=== PATIENT | female | born 1990 | race Caucasian/White ===

== ENCOUNTER 2016-12-03 14:29 | Emergency (ER) | payer OTHER ==
[2016-12-03 14:34] VITALS: BP 141/97; PULSE 100; RESP 18; TEMP 97.8
[2016-12-03] MEDS ORDERED: IBUPROFEN 600 MG TAB PO STA (14:44)
[2016-12-03] MEDS ORDERED: PENICILLIN V POTASSIUM 250 MG TAB PO STA (14:44)
--- NOTE | 2016-12-03 14:46 | ED ---
ENT HPI - General Chief complaint: Dental/Oral Stated complaint: dental pain/facial swelling Time Seen by Provider: 12/03/16 14:39 Source: patient, RN notes reviewed Mode of arrival: ambulatory Limitations: no limitations - History of Present Illness Initial comments: Patient is a 26-year-old female presents to the emergency room for evaluation of abdominal pain and right-sided facial swelling. Patient states she began having right lower dental pain last night. Patient states she woke up this morning with swelling on her right lower jaw. Patient denies dental trauma. Patient does state she has a broken tooth. Patient states her dentist no longer covers her insurance she has not been able follow-up with anyone. Patient denies taking anything for her symptoms. Patient states she's having 7 out of 10 pain. Patient denies trouble swallowing or mouth floor tenderness. Patient denies fevers or chills. Patient denies headache or dizziness. Patient denies any other symptoms or complaints at this time. - Related Data Previous Rx's Medication Instructions Recorded Ibuprofen [Motrin] 600 mg PO Q6HR PRN #20 tab 12/03/16 Penicillin V Potassium [Pen Vee K] 500 mg PO QID 10 Days 12/03/16 Allergies Allergy/AdvReac Type Severity Reaction Status Date / Time No Known Allergies Allergy Verified 12/03/16 14:34 Review of Systems ROS Statement: Those systems with pertinent positive or pertinent negative responses have been documented in the HPI. ROS Other: All systems not noted in ROS Statement are negative. Past Medical History Past Medical History: No Reported History Additional Past Medical History / Comment(s): previous heroin abuse History of Any Multi-Drug Resistant Organisms: None Reported Past Surgical History: No Surgical Hx Reported Past Psychological History: Bipolar Smoking Status: Current every day smoker Past Alcohol Use History: None Reported Past Drug Use History: None Reported General Exam - General Exam Comments Initial Comments: Sitting in exam room, no acute distress. Limitations: no limitations General appearance: alert, in no apparent distress Head exam: Present: atraumatic, normocephalic, normal inspection Eye exam: Present: normal appearance Expanded Mouth exam: Present: other (Right-sided facial edema over mandible) Teeth exam: Present: dental caries, fractured tooth # (Fracture/eroded tooth #29 ), dental tenderness # (29) Throat exam: normal inspection Neck exam: Present: normal inspection Respiratory exam: Absent: respiratory distress Extremities exam: Present: normal inspection Back exam: Present: normal inspection Neurological exam: Present: alert, oriented X3, CN II-XII intact, normal gait Psychiatric exam: Present: normal affect, normal mood Skin exam: Present: warm, dry, intact, normal color. Absent: rash Course Vital Signs 12/03/16 14:31 Temperature 97.8 F Pulse Rate 100 Respiratory 18 Rate Blood Pressure 141/97 O2 Sat by Pulse 97 Oximetry Medical Decision Making - Medical Decision Making Patient is a 26-year-old female presents to the emergency room for evaluation of dental pain and right-sided facial edema. Patient will be placed on antibiotics and advised to follow-up with dentist. Patient states she understands everything that was discussed with her. Return parameters discussed. Disposition Clinical Impression: Pain, dental, Dental abscess Disposition: HOME SELF-CARE Condition: Good Instructions: Dental Abscess (ED), Dental Caries (ED) Additional Instructions: Please follow up with a dentist. If you do not have a dentist, you may contact [facility]. Phone number is [phone] for existing clients. For new clients you may call [phone]. Another option is you have is the [facility] [place] [facility]. Phone number is [phone]. Medications as directed. [place] gargles. Cold fluids can sometimes help with pain as well. Return to the Emergency Room for any worsening or changing symptoms. Use cold compresses to the outside of the face. Prescriptions: Ibuprofen [Motrin] 600 mg PO Q6HR PRN #20 tab PRN Reason: Pain Penicillin V Potassium [Pen Vee K] 500 mg PO QID 10 Days Referrals: Giovanni Peterson MD [Primary Care Provider] - 1-2 days Time of Disposition: 14:45
== END 2016-12-03 15:04 | disposition home or self-care (01) ==
LOC: EC 14:29
DX: K04.7 Periapical abscess without sinus (principal); K08.89 Other specified disorders of teeth and supporting structures; K02.9 Dental caries, unspecified; S02.5XXA Fracture of tooth (traumatic), initial encounter for closed fracture; F17.200 Nicotine dependence, unspecified, uncomplicated
CPT/HCPCS: 99282

== ENCOUNTER 2017-01-29 18:48 | Inpatient (IN) | payer OTHER ==
[2017-01-29] MEDS ORDERED: SODIUM CHLORIDE 0.9% 1,000 ML IV STA (20:00)
[2017-01-29] MEDS ORDERED: HYDROmorphone 1 MG/ML 1 ML SYRINGE IVP STA (20:00)
[2017-01-29] MEDS ORDERED: SODIUM CHLORIDE 0.9% 2,000 ML IV STA (20:00)
[2017-01-29] MEDS ORDERED: PIPERACILLIN-TAZOBACTAM 3.375 GM in DEXTROSE/WATER 1 50ML.BAG IVPB STA (20:00)
[2017-01-29] MEDS ORDERED: ACETAMINOPHEN TAB 500 MG TAB PO STA (20:22)
--- NOTE | 2017-01-29 20:28 | ED ---
Abdominal Pain HPI - General Chief Complaint: Abdominal Pain Stated Complaint: vomiting x 2 days, rt side pain Time Seen by Provider: 01/29/17 19:45 Source: patient Mode of arrival: ambulatory Limitations: no limitations - History of Present Illness Initial Comments: 26 years old female presents with right flank pain, flank pain started yesterday but worse today. She was admitted in a rehab facility, she left tibia facility today, after that she did IV heroin but she does have a history of for drug use. She threw up about 25 times also on her hours and she started he has a fever chills 4 hours she denies any cough she is not coughing up any phlegm she denies any headaches no neck stiffness no chest pain or shortness of breath does complain about the right flank pain no frequency urgency dysuria possible medical history is significant for IV drug use or surgical history is unremarkable - Related Data Home Medications Medication Instructions Recorded Confirmed No Known Home Medications [No 01/29/17 01/29/17 Known Home Medications] Allergies Allergy/AdvReac Type Severity Reaction Status Date / Time No Known Allergies Allergy Verified 01/29/17 19:54 Review of Systems ROS Statement: Those systems with pertinent positive or pertinent negative responses have been documented in the HPI. ROS Other: All systems not noted in ROS Statement are negative. Past Medical History Past Medical History: No Reported History Additional Past Medical History / Comment(s): previous heroin abuse History of Any Multi-Drug Resistant Organisms: None Reported Past Surgical History: No Surgical Hx Reported Past Psychological History: Bipolar Smoking Status: Current every day smoker Past Alcohol Use History: None Reported Past Drug Use History: Heroin, IV Drug Use General Exam - General Exam Comments Initial Comments: General: The patient is awake and alert, in mild distress Skin: Skin is warm and dry and no rashes or lesions are noted. Eye: Pupils are equal, round and reactive to light, extra-ocular movements are intact; there is normal conjunctiva bilaterally. Ears, nose, mouth and throat: There are moist mucous membranes and no oral lesions. Neck: The neck is supple, there is no tenderness no signs of meningitis. Cardiovascular: There is a regular rate and rhythm. No murmur, rub or gallop is appreciated. Respiratory: To auscultation bilateral, no wheezing no rhonchi no distress respiratory rodrigez noticed Gastrointestinal: Tender in the right flank area Back: There is no tenderness to palpation in the midline. There is no obvious deformity. Musculoskeletal: Normal ROM, no tenderness, There is no pedal edema. There is no calf tenderness or swelling. No cords were appreciated. Neurological: CN II-XII intact, Cranial nerves III through XII are intact. There are no obvious motor or sensory deficits. Coordination appears grossly intact. Speech is normal. Psychiatric: Cooperative, appropriate mood & affect, normal judgment. Limitations: no limitations Course Vital Signs 01/29/17 01/29/17 01/29/17 19:11 20:23 21:30 Temperature 102.5 F H 98.3 F Pulse Rate 110 H 94 80 Respiratory 16 18 18 Rate Blood Pressure 115/60 124/66 111/55 O2 Sat by Pulse 99 96 99 Oximetry Patient is reassessed at 2130, white count is quite elevated almost 19,000 with a left shift urinalysis positive, compressive metabolic panel is within normal range urine is positive and ultrasound of the abdomen is negative his Medical Decision Making - Lab Data Result diagrams: 01/29/17 20:17 01/29/17 20:17 Lab Results 01/29/17 01/29/17 01/29/17 Range/Units 20:17 20:17 20:17 WBC 18.7 H (3.8-10.6) k/uL RBC 4.42 (3.80-5.40) m/uL Hgb 13.3 (11.4-16.0) gm/dL Hct 37.2 (34.0-46.0) % MCV 84.1 (80.0-100.0) fL MCH 30.0 (25.0-35.0) pg MCHC 35.7 (31.0-37.0) g/dL RDW 11.9 (11.5-15.5) % Plt Count 240 (150-450) k/uL Neutrophils % 85 % Lymphocytes % 8 % Monocytes % 6 % Eosinophils % 0 % Basophils % 0 % Neutrophils # 15.9 H (1.3-7.7) k/uL Lymphocytes # 1.4 (1.0-4.8) k/uL Monocytes # 1.0 (0-1.0) k/uL Eosinophils # 0.1 (0-0.7) k/uL Basophils # 0.0 (0-0.2) k/uL Sodium 135 L (137-145) mmol/L Potassium 4.0 (3.5-5.1) mmol/L Chloride 97 L (98-107) mmol/L Carbon Dioxide 23 (22-30) mmol/L Anion Gap 15 mmol/L BUN 9 (7-17) mg/dL Creatinine 0.60 (0.52-1.04) mg/dL Est GFR (MDRD) Af Amer >60 (>60 ml/min/1.73 sqM) Est GFR (MDRD) Non-Af >60 (>60 ml/min/1.73 sqM) Glucose 108 H (74-99) mg/dL Plasma Lactic Acid Sarthak 1.2 (0.7-2.0) mmol/L Calcium 9.8 (8.4-10.2) mg/dL Total Bilirubin 0.6 (0.2-1.3) mg/dL AST 14 (14-36) U/L ALT 29 (9-52) U/L Alkaline Phosphatase 138 H (38-126) U/L Total Protein 7.9 (6.3-8.2) g/dL Albumin 4.6 (3.5-5.0) g/dL Amylase 40 (30-110) U/L Lipase 14 L (23-300) U/L Urine Color Urine Appearance (Clear) Urine pH (5.0-8.0) Ur Specific [place] (1.001-1.035) Urine Protein (Negative) Urine Glucose (UA) (Negative) Urine Ketones (Negative) Urine Blood (Negative) Urine Nitrite (Negative) Urine Bilirubin (Negative) Urine Urobilinogen (<2.0) mg/dL Ur Leukocyte Esterase (Negative) Urine RBC (0-5) /hpf Urine WBC (0-5) /hpf Urine WBC Clumps (None) /hpf Ur Squamous Epith Cells (0-4) /hpf Urine Bacteria (None) /hpf Urine Mucus (None) /hpf Urine HCG, Qual (Not Detectd) 01/29/17 01/29/17 Range/Units 20:32 20:32 WBC (3.8-10.6) k/uL RBC (3.80-5.40) m/uL Hgb (11.4-16.0) gm/dL Hct (34.0-46.0) % MCV (80.0-100.0) fL MCH (25.0-35.0) pg MCHC (31.0-37.0) g/dL RDW (11.5-15.5) % Plt Count (150-450) k/uL Neutrophils % % Lymphocytes % % Monocytes % % Eosinophils % % Basophils % % Neutrophils # (1.3-7.7) k/uL Lymphocytes # (1.0-4.8) k/uL Monocytes # (0-1.0) k/uL Eosinophils # (0-0.7) k/uL Basophils # (0-0.2) k/uL Sodium (137-145) mmol/L Potassium (3.5-5.1) mmol/L Chloride (98-107) mmol/L Carbon Dioxide (22-30) mmol/L Anion Gap mmol/L BUN (7-17) mg/dL Creatinine (0.52-1.04) mg/dL Est GFR (MDRD) Af Amer (>60 ml/min/1.73 sqM) Est GFR (MDRD) Non-Af (>60 ml/min/1.73 sqM) Glucose (74-99) mg/dL Plasma Lactic Acid Sarthak (0.7-2.0) mmol/L Calcium (8.4-10.2) mg/dL Total Bilirubin (0.2-1.3) mg/dL AST (14-36) U/L ALT (9-52) U/L Alkaline Phosphatase (38-126) U/L Total Protein (6.3-8.2) g/dL Albumin (3.5-5.0) g/dL Amylase (30-110) U/L Lipase (23-300) U/L Urine Color Yellow Urine Appearance Turbid H (Clear) Urine pH 6.5 (5.0-8.0) Ur Specific [place] 1.016 (1.001-1.035) Urine Protein 2+ H (Negative) Urine Glucose (UA) Negative (Negative) Urine Ketones Trace H (Negative) Urine Blood Small H (Negative) Urine Nitrite Negative (Negative) Urine Bilirubin Negative (Negative) Urine Urobilinogen 2.0 (<2.0) mg/dL Ur Leukocyte Esterase Large H (Negative) Urine RBC 39 H (0-5) /hpf Urine WBC 143 H (0-5) /hpf Urine WBC Clumps Few H (None) /hpf Ur Squamous Epith Cells 11 H (0-4) /hpf Urine Bacteria Many H (None) /hpf Urine Mucus Many H (None) /hpf Urine HCG, Qual Not Detected (Not Detectd) Disposition Clinical Impression: Fever, Right flank pain, Pyelonephritis, Sepsis Disposition: ADMITTED IP TO THIS HOSP Condition: Good Referrals: Giovanni Peterson MD [Primary Care Provider] - 1-2 days
[2017-01-29 20:34] LABS: Basophils % (A) 0 %; CH 29.9; CHCM 35.6; Eosinophils # (A) 0.1 k/uL (0-0.7); Eosinophils % (A) 0 %; HCT 37.2 % (34.0-46.0); HGB 13.3 gm/dL (11.4-16.0); Luc # (Auto) 0.17; Luc % (Auto) 1; Lymphocytes # (A) 1.4 k/uL (1.0-4.8); Lymphocytes % (A) 8 %; MCHC 35.7 g/dL (31.0-37.0); MCV 84.1 fL (80.0-100.0); Mean Platelet Volume 8.8; Monocytes % (A) 6 %; Neutrophils # (A) 15.9 k/uL (1.3-7.7); Neutrophils % (A) 85 %; RBC 4.42 m/uL (3.80-5.40); RDW 11.9 % (11.5-15.5); WBC 18.7 k/uL (3.8-10.6); WBC (Perox) 18.12
[2017-01-29 20:45] LABS: ALT 29 U/L (9-52); AST 14 U/L (14-36); Alkaline Phosphatase 138 U/L (38-126); Amylase 40 U/L (30-110); Anion Gap 15 mmol/L; Blood Urea Nitrogen 9 mg/dL (7-17); Calcium 9.8 mg/dL (8.4-10.2); Carbon Dioxide 23 mmol/L (22-30); Chloride 97 mmol/L (98-107); Glucose 108 mg/dL (74-99); Non-African American GFR(MDRD) >60 (>60 ml/min/1.73 sqM); Sodium 135 mmol/L (137-145); Total Bilirubin 0.6 mg/dL (0.2-1.3); Total Protein 7.9 g/dL (6.3-8.2)
[2017-01-29 20:46] LABS: Appearance,Urine Turbid (Clear); Bacteria,Urine Many /hpf; Bilirubin,Urine Negative (Negative); Glucose,Urine (UA) Negative (Negative); Ketones,Urine Trace (Negative); Leukocyte Esterase,Urine Large (Negative); Mucus,Urine Many /hpf; Nitrite,Urine Negative (Negative); PH, Urine 6.5 (5.0-8.0); Particle Count 184666; Protein,Urine 2+ (Negative); RBC,Urine 39 /hpf (0-5); Specific Gravity,Urine 1.016 (1.001-1.035); Squamous Epithelial Cell,Urine 11 /hpf (0-4); UA Billing (MACRO vs. MICRO) MICRO; WBC,Urine 143 /hpf (0-5)
--- NOTE | 2017-01-29 21:13 | US ---
EXAMINATION TYPE: US abdomen limited DATE OF EXAM: 01/29/2017 COMPARISON: NONE CLINICAL HISTORY: Pain. RLQ pain EXAM MEASUREMENTS: Liver Length: 15.1 cm Gallbladder Wall: 0.26 cm CBD: 0.38 cm Right Kidney: 9.5 x 4.0 x 4.3 cm Pancreas: wnl Liver: wnl Gallbladder: wnl Evidence for sonographic Campbell's sign: No CBD: wnl Right Kidney: No hydronephrosis or masses seen IMPRESSION: Normal exam. No gallstones or dilated ducts.
--- NOTE | 2017-01-29 21:36 | XR ---
EXAMINATION TYPE: XR KUB DATE OF EXAM: 01/29/2017 COMPARISON: NONE HISTORY: Abdominal pain TECHNIQUE: 2 views FINDINGS: There is no sign of intestinal obstruction or pneumoperitoneum. Fecal pattern is normal. Th ere are no pathologic calcifications over the kidneys. Lung bases are clear. IMPRESSION: Nonacute abdomen.
[2017-01-29] MEDS ORDERED: NALOXONE 0.4 MG/ML 1 ML VIAL IV PRN (21:40)
[2017-01-29] MEDS ORDERED: ONDANSETRON 4 MG/2 ML VIAL IVP PRN (21:40)
[2017-01-29] MEDS ORDERED: ACETAMINOPHEN TAB 500 MG TAB PO PRN (21:47)
[2017-01-29] MEDS: HYDROmorphone 1 MG/ML 1 ML SYRINGE IV PRN (23:31)
[2017-01-30] MEDS: SODIUM CHLORIDE 0.9% 1,000 ML IV SCH ×2 (00:21→06:16)
[2017-01-30] MEDS: HYDROmorphone 1 MG/ML 1 ML SYRINGE IV PRN ×3 (03:21→09:09)
[2017-01-30 08:01] LABS: Basophils % (A) 0 %; CH 29.8; CHCM 35.2; Eosinophils # (A) 0.1 k/uL (0-0.7); Eosinophils % (A) 1 %; HCT 33.3 % (34.0-46.0); HDW 2.49; HGB 11.9 gm/dL (11.4-16.0); Luc # (Auto) 0.22; Luc % (Auto) 1; Lymphocytes # (A) 1.6 k/uL (1.0-4.8); Lymphocytes % (A) 10 %; MCH 30.4 pg (25.0-35.0); MCHC 35.7 g/dL (31.0-37.0); Mean Platelet Volume 9.9; Monocytes # (A) 1.2 k/uL (0-1.0); Monocytes % (A) 8 %; Neutrophils # (A) 12.2 k/uL (1.3-7.7); Neutrophils % (A) 79 %; RBC 3.92 m/uL (3.80-5.40); WBC 15.4 k/uL (3.8-10.6); WBC (Perox) 15.72
[2017-01-30 08:17] LABS: ALT 15 U/L (9-52); AST 16 U/L (14-36); Alkaline Phosphatase 94 U/L (38-126); Anion Gap 10 mmol/L; Blood Urea Nitrogen 6 mg/dL (7-17); Calcium 8.5 mg/dL (8.4-10.2); Carbon Dioxide 18 mmol/L (22-30); Chloride 109 mmol/L (98-107); Glucose 95 mg/dL (74-99); Non-African American GFR(MDRD) >60 (>60 ml/min/1.73 sqM); Potassium 4.3 mmol/L (3.5-5.1); Sodium 137 mmol/L (137-145); Total Bilirubin 0.4 mg/dL (0.2-1.3); Total Protein 5.9 g/dL (6.3-8.2)
--- NOTE | 2017-01-30 11:32 | P.HPIM ---
History of Present Illness 26 years old female presents with right flank pain, flank pain started 2 days ago. She was admitted in a rehab facility,for IV drug use last heroin use was yesterday. Patient does have history of hepatitis C is on treatment for zina She threw up about 25 times also on her hours and she started he has a fever chills 4 hours she denies any cough she is not coughing up any phlegm she denies any headaches no neck stiffness no chest pain or shortness of breath does complain about the right flank pain no frequency urgency dysuria possible medical history is significant for IV drug use or surgical history is unremarkal patient is found to have urinary tract infection and sepsis and urinary tract infection patient had fevers and leukocytosis right flank pain and patient was given Zosyn will be switched to Rocephin and urine cultures and blood cultures are pending. Review of Systems REVIEW OF SYSTEMS: CONSTITUTIONAL: No fever, no malaise, no fatigue. HEENT: No recent visual problems or hearing problems. Denied any sore throat. CARDIOVASCULAR: No chest pain, orthopnea, PND, no palpitations, no syncope. PULMONARY: No shortness of breath, no cough, no hemoptysis. GASTROINTESTINAL: No diarrhea, no nausea, no vomiting, no abdominal pain. Normoactive bowel sounds. NEUROLOGICAL: No headaches, no weakness, no numbness. HEMATOLOGICAL: Denies any bleeding or petechiae. GENITOURINARY:as mentioned in HPI MUSCULOSKELETAL/RHEUMATOLOGICAL: Denies any joint pain, swelling, or any muscle pain. ENDOCRINE: Denies any polyuria or polydipsia. The rest of the 14-point review of systems is negative. Past Medical History Past Medical History: No Reported History Additional Past Medical History / Comment(s): heroin abuse last use 01/29/17 History of Any Multi-Drug Resistant Organisms: None Reported Past Surgical History: Tonsillectomy Past Anesthesia/Blood Transfusion Reactions: No Reported Reaction Past Psychological History: Bipolar Smoking Status: Current every day smoker Past Alcohol Use History: None Reported Past Drug Use History: Heroin, IV Drug Use - Past Family History Mother Additional Family Medical History / Comment(s): fibromylagia; rheumatoid arthrits Father Additional Family Medical History / Comment(s): pancreatitis; etoh Medications and Allergies Home Medications Medication Instructions Recorded Confirmed Type No Known Home Medications [No 01/29/17 01/29/17 History Known Home Medications] Allergies Allergy/AdvReac Type Severity Reaction Status Date / Time No Known Allergies Allergy Verified 01/29/17 19:54 Physical Exam Vitals: Vital Signs Temp Pulse Pulse Resp BP BP Pulse Ox 01/30/17 07:00 98.2 F 76 18 115/59 98 01/30/17 03:24 98.1 F 01/29/17 23:00 98.0 F 75 16 113/71 99 01/29/17 22:19 98.6 F 01/29/17 22:11 73 18 115/60 97 01/29/17 21:30 98.3 F 80 18 111/55 99 01/29/17 20:23 94 18 124/66 96 01/29/17 19:11 102.5 F H 110 H 16 115/60 99 Intake and Output 01/29/17 01/30/17 01/30/17 22:59 06:59 14:59 Intake Total 800 Balance 800 Intake: IV 800 Piperacillin-Tazobactam 3 50 .375 gm In Dextrose/Water 1 50ml.bag @ 12.5 mls/hr IVPB ONCE STA Rx#: [id number] Sodium Chloride 0.9% 1, 750 000 ml @ 125 mls/hr IV . Q8H [facility] Rx#:[id number] Other: Voiding Method Toilet Toilet # Voids 1 Weight 58.967 kg 60 kg PHYSICAL EXAMINATION: GENERAL: The patient is alert and oriented x3, not in any acute distress. Well developed, well nourished. HEENT: Pupils are round and equally reacting to light. EOMI. No scleral icterus. No conjunctival pallor. Normocephalic, atraumatic. No pharyngeal erythema. No thyromegaly. CARDIOVASCULAR: S1 and S2 present. No murmurs, rubs, or gallops. PULMONARY: Chest is clear to auscultation, no wheezing or crackles. ABDOMEN: Soft, nontender, nondistended, normoactive bowel sounds. No palpable organomegaly. mild right flank tenderness was appreciated MUSCULOSKELETAL: No joint swelling or deformity. EXTREMITIES: No cyanosis, clubbing, or pedal edema. NEUROLOGICAL: Gross neurological examination did not reveal any focal deficits. SKIN: No rashes. Results CBC & Chem 7: 01/30/17 06:52 01/30/17 06:52 Labs: Abnormal Lab Results - Last 24 Hours (Table) 01/29/17 01/29/17 01/29/17 Range/Units 20:17 20:17 20:32 WBC 18.7 H (3.8-10.6) k/uL Hct (34.0-46.0) % Neutrophils # 15.9 H (1.3-7.7) k/uL Monocytes # (0-1.0) k/uL Sodium 135 L (137-145) mmol/L Chloride 97 L (98-107) mmol/L Carbon Dioxide (22-30) mmol/L BUN (7-17) mg/dL Creatinine (0.52-1.04) mg/dL Glucose 108 H (74-99) mg/dL Alkaline Phosphatase 138 H (38-126) U/L Total Protein (6.3-8.2) g/dL Albumin (3.5-5.0) g/dL Lipase 14 L (23-300) U/L Urine Appearance Turbid H (Clear) Urine Protein 2+ H (Negative) Urine Ketones Trace H (Negative) Urine Blood Small H (Negative) Ur Leukocyte Esterase Large H (Negative) Urine RBC 39 H (0-5) /hpf Urine WBC 143 H (0-5) /hpf Urine WBC Clumps Few H (None) /hpf Ur Squamous Epith Cells 11 H (0-4) /hpf Urine Bacteria Many H (None) /hpf Urine Mucus Many H (None) /hpf 01/30/17 01/30/17 Range/Units 06:52 06:52 WBC 15.4 H (3.8-10.6) k/uL Hct 33.3 L (34.0-46.0) % Neutrophils # 12.2 H (1.3-7.7) k/uL Monocytes # 1.2 H (0-1.0) k/uL Sodium (137-145) mmol/L Chloride 109 H (98-107) mmol/L Carbon Dioxide 18 L (22-30) mmol/L BUN 6 L (7-17) mg/dL Creatinine 0.50 L (0.52-1.04) mg/dL Glucose (74-99) mg/dL Alkaline Phosphatase (38-126) U/L Total Protein 5.9 L (6.3-8.2) g/dL Albumin 3.2 L (3.5-5.0) g/dL Lipase (23-300) U/L Urine Appearance (Clear) Urine Protein (Negative) Urine Ketones (Negative) Urine Blood (Negative) Ur Leukocyte Esterase (Negative) Urine RBC (0-5) /hpf Urine WBC (0-5) /hpf Urine WBC Clumps (None) /hpf Ur Squamous Epith Cells (0-4) /hpf Urine Bacteria (None) /hpf Urine Mucus (None) /hpf Thrombosis Risk Factor Assmnt - Choose All That Apply Any of the Below Risk Factors Present?: No Other Risk Factors: No Other congenital or acquired thrombophilia - If yes, enter type in comment: No Thrombosis Risk Factor Assessment Level: Very Low Risk Assessment and Plan Plan: #1 sepsis: Secondary to urinary tract infection and pyelonephritis: Patient will be on 2 g of Rocephin awaiting urine cultures and blood cultures. #2 history of IV drug use counseling was provided B regarding this. Pending blood cultures. #3 history of hepatitis C for which patient is on treatment as an outpatient.
[2017-01-30] MEDS: HYDROmorphone 1 MG/ML 1 ML SYRINGE IVP PRN ×6 (12:02→21:48)
[2017-01-30] MEDS: NICOTINE 21MG/24HR PATCH TRANSDERM SCH (12:02)
[2017-01-30] MEDS: cefTRIAXone 2,000 MG in SODIUM CHLORIDE 0.9% 100 ML IVPB SCH (12:03)
[2017-01-30] MEDS: LACTATED RINGERS 1,000 ML IV SCH (12:03)
[2017-01-30] MEDS: KETOROLAC 30 MG/ML 1 ML VIAL IVP PRN ×2 (16:57→23:16)
[2017-01-30] MEDS: LORazepam 0.5 MG TAB PO PRN ×2 (17:17→21:48)
[2017-01-30] MEDS: FAMOTIDINE 20 MG TAB PO SCH (21:49)
[2017-01-31] MEDS: HYDROmorphone 1 MG/ML 1 ML SYRINGE IVP PRN ×7 (00:04→14:55)
[2017-01-31] MEDS: NICOTINE 21MG/24HR PATCH TRANSDERM SCH ×2 (00:10→08:02)
[2017-01-31] MEDS: LACTATED RINGERS 1,000 ML IV SCH ×2 (00:11→14:26)
[2017-01-31] MEDS: KETOROLAC 30 MG/ML 1 ML VIAL IVP PRN ×2 (05:09→11:15)
[2017-01-31] MEDS: LORazepam 0.5 MG TAB PO PRN ×2 (07:07→13:18)
[2017-01-31 07:41] VITALS: BP 124/80; PULSE 79; RESP 18; TEMP 97.9
[2017-01-31] MEDS: cefTRIAXone 2,000 MG in SODIUM CHLORIDE 0.9% 100 ML IVPB SCH (08:01)
[2017-01-31] MEDS: FAMOTIDINE 20 MG TAB PO SCH (08:04)
--- NOTE | 2017-01-31 11:01 | P.PN ---
Subjective Patient is admitted for sepsis secondary to urinary tract infection and pyelonephritis and patient had improvement in fevers and leukocytosis patient is feeling a bit better today will wait for the cultures tomorrow possibility of discharge tomorrow. Patient denied any fever, chills, nausea, dysuria right flank pain improved. Objective - Vital Signs Vital signs: Vital Signs Temp 97.9 F 01/31/17 07:00 Pulse 79 01/31/17 07:53 Resp 18 01/31/17 07:53 BP 124/80 01/31/17 07:00 Pulse Ox 100 01/31/17 07:00 Intake & Output 01/30/17 01/31/17 01/31/17 18:59 06:59 18:59 Intake Total 1340 Balance 1340 Weight 60 kg 60 kg Intake: Intake, IV Titration 900 Amount Lactated Ringers 1,000 ml 900 @ 75 mls/hr IV .[id number] [facility] Rx#:[id number] Oral 440 Other: Voiding Method Toilet Toilet Toilet # Voids 3 3 # Bowel Movements 2 2 - Exam PHYSICAL EXAMINATION: GENERAL: The patient is alert and oriented x3, not in any acute distress. Well developed, well nourished. HEENT: Pupils are round and equally reacting to light. EOMI. No scleral icterus. No conjunctival pallor. Normocephalic, atraumatic. No pharyngeal erythema. No thyromegaly. CARDIOVASCULAR: S1 and S2 present. No murmurs, rubs, or gallops. PULMONARY: Chest is clear to auscultation, no wheezing or crackles. ABDOMEN: Soft, nontender, nondistended, normoactive bowel sounds. No palpable organomegaly. MUSCULOSKELETAL: No joint swelling or deformity. EXTREMITIES: No cyanosis, clubbing, or pedal edema. NEUROLOGICAL: Gross neurological examination did not reveal any focal deficits. SKIN: No rashes. - Labs CBC & Chem 7: 01/30/17 06:52 01/30/17 06:52 Labs: Microbiology - Last 24 Hours (Table) 01/29/17 20:17 Blood Culture - Preliminary Blood No Growth after 24 hours Assessment and Plan Plan: #1 sepsis: Secondary to urinary tract infection and pyelonephritis: Patient will be on 2 g of Rocephin awaiting urine cultures and blood cultures. Improving leukocytosis and symptoms possibility of discharge tomorrow and oral antibiotics awaiting urine and blood cultures #2 history of IV drug use counseling was provided B regarding this. Pending blood cultures. #3 history of hepatitis C for which patient is on treatment as an outpatient.
[2017-01-31 13:02] LABS: Basophils % (A) 0 %; CH 30.1; CHCM 34.6; Eosinophils # (A) 0.1 k/uL (0-0.7); Eosinophils % (A) 1 %; HCT 37.4 % (34.0-46.0); HDW 2.53; HGB 12.4 gm/dL (11.4-16.0); Luc # (Auto) 0.12; Luc % (Auto) 2; Lymphocytes # (A) 1.1 k/uL (1.0-4.8); Lymphocytes % (A) 15 %; MCHC 33.2 g/dL (31.0-37.0); MCV 87.3 fL (80.0-100.0); Mean Platelet Volume 9.2; Monocytes # (A) 0.4 k/uL (0-1.0); Monocytes % (A) 5 %; Neutrophils # (A) 5.9 k/uL (1.3-7.7); Neutrophils % (A) 78 %; RBC 4.28 m/uL (3.80-5.40); WBC 7.6 k/uL (3.8-10.6); WBC (Perox) 8.42
[2017-01-31 13:29] LABS: Anion Gap 9 mmol/L; Blood Urea Nitrogen 5 mg/dL (7-17); Calcium 9.2 mg/dL (8.4-10.2); Carbon Dioxide 25 mmol/L (22-30); Chloride 107 mmol/L (98-107); Glucose 101 mg/dL (74-99); Non-African American GFR(MDRD) >60 (>60 ml/min/1.73 sqM); Potassium 4.3 mmol/L (3.5-5.1); Sodium 141 mmol/L (137-145)
--- NOTE | 2017-01-31 13:41 | P.DS ---
Providers Date of admission: 01/29/17 21:41 Attending physician: Dwain Gamez Primary care physician: Giovanni Peterson Hospital Course: Patient is requesting to be discharged patient will be discharged on week of Cipro Floxin I do not have any cultures available because of which am discharging her on empiric antibiotics for about a be treating for sepsis and pyelonephritis. Patient Condition at Discharge: Good Plan - Discharge Summary New Discharge Prescriptions: New Ciprofloxacin HCl [Cipro] 500 mg PO Q12HR #14 tablet Discharge Medication List Ciprofloxacin HCl [Cipro] 500 mg PO Q12HR #14 tablet 01/31/17 [Rx] Follow up Appointment(s)/Referral(s): Giovanni Peterson MD [Primary Care Provider] - 1-2 days
== END 2017-01-31 15:38 | disposition home or self-care (01) | DRG 872 ==
LOC: EC 18:48 → 5MS5E 21:41
PROVIDERS: ADMIT Hospitalist; ATTEND Hospitalist
DX: A41.9 Sepsis, unspecified organism (principal); F11.20 Opioid dependence, uncomplicated; N10 Acute pyelonephritis; B18.2 Chronic viral hepatitis C; F31.9 Bipolar disorder, unspecified; F17.200 Nicotine dependence, unspecified, uncomplicated; Z81.1 Family history of alcohol abuse and dependence; Z82.61 Family history of arthritis
CPT/HCPCS: 36415; 74000; 76705; 80048; 80053; 81001; 81025; 82150; 83605; 83690; 85025; 87040; 96365; 96366; 96375; 99285

== ENCOUNTER → 2018-02-04 | Outpatient (CLI) | payer OTHER ==
[2018-02-04 15:16] LABS: HCT 38.7 % (34.0-46.0); HGB 13.2 gm/dL (11.4-16.0); MCH 29.8 pg (25.0-35.0); MCHC 34.1 g/dL (31.0-37.0); MCV 87.5 fL (80.0-100.0); Mean Platelet Volume 8.3; Platelet Count 247 k/uL (150-450); RBC 4.42 m/uL (3.80-5.40); WBC 10.2 k/uL (3.8-10.6)
[2018-02-04 15:24] LABS: INR 1.1 (<1.2); Partial Thromboplastin Time 24.5 sec (22.0-30.0); Prothrombin Time 10.7 sec (9.0-12.0)
[2018-02-04 15:37] LABS: ALT 23 U/L (9-52); AST 18 U/L (14-36); Albumin 4.6 g/dL (3.5-5.0); Alkaline Phosphatase 56 U/L (38-126); Anion Gap 12 mmol/L; Blood Urea Nitrogen 10 mg/dL (7-17); Calcium 9.9 mg/dL (8.4-10.2); Carbon Dioxide 23 mmol/L (22-30); Chloride 105 mmol/L (98-107); Glucose 78 mg/dL (74-99); Potassium 4.1 mmol/L (3.5-5.1); Sodium 140 mmol/L (137-145); Total Bilirubin 0.3 mg/dL (0.2-1.3); Total Protein 7.6 g/dL (6.3-8.2)
[2018-02-07 10:45] LABS: Hepatits C Virus RNA Not detected (Not detected); Hepatits C Virus RNA, Quant <12 IU/mL (<12); LOG HCV IU/mL <1.08 (<1.08)
== END | disposition home or self-care (01) ==
LOC: LABWHC1 14:41
DX: B18.2 Chronic viral hepatitis C (principal)
CPT/HCPCS: 36415; 80053; 85027; 85610; 85730; 87522